=== PATIENT | male | born 1985 | race American Indian/Alaskan Native ===

== ENCOUNTER 2016-10-25 14:32 | Emergency (ER) | payer MEDICAID ==
[2016-10-25 14:36] VITALS: O2SAT 98
--- NOTE | 2016-10-25 15:09 | ED PDOC ---
Lower Extremity Pain/Injury Time Seen by Provider: 10/25/16 14:55 Chief Complaint (Nursing): Lower Extremity Problem/Injury Chief Complaint (Provider): Right foot pain History Per: Patient History/Exam Limitations: no limitations Onset/Duration Of Symptoms: Mins Current Symptoms Are (Timing): Still Present Severity: Moderate Additional History Per: Patient Additional Complaint(s): The pt is a 31yo male with PMHx of Asthma, presents to the ED for evaluation of right foot pain since 2 hours ago. Pt reports he was walking to work and struck his foot against an object - states he walked to worked and called an ambulance to get him to this facility for evaluation. Pt reports pain is worse on the plantar surface of his right foot and also states pain to his ankle. Pt denies taking any medications for pain. At present, he offers no additional medical complaints. PMD: None provided - Ankle/Foot Description Of Injury: Struck Against Object Currently Unable To: Bear Weight Past Medical History Reviewed: Historical Data, Nursing Documentation, Vital Signs Vital Signs: Last Vital Signs Temp Pulse Resp BP Pulse Ox 98 10/25/16 14:34 - Medical History PMH: Asthma, Depression Denies: Diabetes, Hepatitis, HIV, HTN, Seizures, Sexually Transmitted Disease - Surgical History Other surgeries: knee surgery - Family History Family History: States: Unknown Family Hx - Home Medications Home Medications: Ambulatory Orders Medication Instructions Recorded Risperdal 10/19/13 Naproxen 500 mg PO BID #10 tab 10/25/16 - Allergies Allergies/Adverse Reactions: Allergies Allergy/AdvReac Type Severity Reaction Status Date / Time No Known Allergies Allergy Unverified 10/19/13 05:44 Review of Systems ROS Statement: Except As Marked, All Systems Reviewed And Found Negative Musculoskeletal: Positive for: Foot Pain (right) Physical Exam - Reviewed Nursing Documentation Reviewed: Yes Vital Signs Reviewed: Yes - Physical Exam Appears: Positive for: Well, Non-toxic, No Acute Distress Head Exam: Positive for: ATRAUMATIC, NORMAL INSPECTION, NORMOCEPHALIC Skin: Positive for: Normal Color, Warm, DRY Eye Exam: Positive for: Normal appearance Respiratory: Negative for: Respiratory Distress Extremity: Positive for: Normal ROM, Tenderness (tenderness to medial aspect of right foot and to the dorsal aspect of right foot.). Negative for: Deformity Neurologic/Psych: Positive for: Alert, Oriented - ECG O2 Sat by Pulse Oximetry: 98 (RA) Pulse Ox Interpretation: Normal Medical Decision Making Medical Decision Making: Time: 1505 Impression: Foot fracture vs. sprain Plan: -- XR Right foot -- Motrin 600 mg PO --Reassess Xray foot no acute findings Scribe Attestation: Documented by Dionne Dodd acting as a scribe for Reema Encinas MD Provider Scribe Attestation: All medical record entries made by the Scribe were at my direction and personally dictated by me. I have reviewed the chart and agree that the record accurately reflects my personal performance of the history, physical exam, medical decision making, and the department course for this patient. I have also personally directed, reviewed, and agree with the discharge instructions and disposition. Disposition - Clinical Impression Clinical Impression: Foot sprain - Patient ED Disposition Is Patient to be Admitted: No Doctor Will See Patient In The: Office Counseled Patient/Family Regarding: Studies Performed, Diagnosis, Need For Followup - Disposition Referrals: Podiatry Clinic [Outside] Disposition: Routine/Home Disposition Time: 16:57 Condition: GOOD Additional Instructions: Follow up with podiatry within 1 week. Prescriptions: Naproxen 500 mg PO BID #10 tab Instructions: Foot Sprain (ED)
--- NOTE | 2016-10-26 16:33 | RAD ---
PROCEDURE: Right Foot Radiographs. HISTORY: right foot pain COMPARISON: None. FINDINGS: BONES: Bone alignment and mineralization are normal. There is no acute fracture or bone destruction. JOINTS: The joint spaces are preserved. SOFT TISSUES: Normal. OTHER FINDINGS: None. IMPRESSION: Normal examination.
== END 2016-10-25 18:44 | disposition home or self-care (01) ==
LOC: H.ER 14:32
DX: S93.601A Unspecified sprain of right foot, initial encounter (principal); W22.8XXA Striking against or struck by other objects, initial encounter; Y99.0 Civilian activity done for income or pay

== ENCOUNTER 2017-02-21 03:16 | Emergency (ER) | payer MEDICAID, OTHER ==
[2017-02-21 03:45] VITALS: BP 129/67; PULSE 65; RESP 18; TEMP 98; O2SAT 99
--- NOTE | 2017-02-21 03:50 | ED PDOC ---
HPI: Dental Pain/Injury Time Seen by Provider: 02/21/17 03:50 Chief Complaint (Nursing): Dental Pain Chief Complaint (Provider): tooth pain History Per: Patient Additional Complaint(s): 31 year old male presents with overall dental pain for the past 2-3 days. He has not taken any meds for pain relief. Patient rates current pain as 6/10. He is tolerating liquids and solids. No associated trauma or injury. Past Medical History Reviewed: Historical Data, Nursing Documentation, Vital Signs Vital Signs: Last Vital Signs Temp 98 F 02/21/17 03:44 Pulse 65 02/21/17 03:44 Resp 18 02/21/17 03:44 BP 129/67 02/21/17 03:44 Pulse Ox 99 02/21/17 03:44 - Medical History PMH: Asthma, Depression - Surgical History Surgical History: No Surg Hx - Family History Family History: States: No Known Family Hx - Living Arrangements Living Arrangements: Other (non domiciled) - Social History Current smoker - smoking cessation education provided: Yes Alcohol: None Drugs: Denies - Home Medications Home Medications: Ambulatory Orders Medication Instructions Recorded Risperdal 10/19/13 Naproxen 500 mg PO BID #10 tab 10/25/16 Ibuprofen [Motrin] 600 mg PO Q6 PRN #15 tab 02/21/17 - Allergies Allergies/Adverse Reactions: Allergies Allergy/AdvReac Type Severity Reaction Status Date / Time No Known Allergies Allergy Unverified 10/19/13 05:44 Review of Systems ROS Statement: Except As Marked, All Systems Reviewed And Found Negative ENT: Positive for: Other (dental pain) Physical Exam - Reviewed Nursing Documentation Reviewed: Yes Vital Signs Reviewed: Yes - Physical Exam Appears: Positive for: Well, Non-toxic, No Acute Distress Skin: Negative for: Rash Eye Exam: Positive for: Normal appearance ENT: Positive for: Other (Multiple missing molar teeth to right and left lower mandibles, full rom of lower mandible, no dental abscess, no facial swelling) Neck: Positive for: Normal Cardiovascular/Chest: Positive for: Regular Rate, Rhythm Respiratory: Positive for: Normal Breath Sounds Neurologic/Psych: Positive for: Alert, Oriented - ECG O2 Sat by Pulse Oximetry: 99 Pulse Ox Interpretation: Normal Medical Decision Making Medical Decision Making: Impression: dental pain, dental caries Plan: PO motrin dose in ED Rx motrin given along with list of dental clinics for follow up. Disposition - Clinical Impression Clinical Impression: Pain, dental, Dental caries - Patient ED Disposition Is Patient to be Admitted: No Counseled Patient/Family Regarding: Diagnosis, Need For Followup, Rx Given - Disposition Referrals: [facility] [Outside] Disposition: Routine/Home Disposition Time: 04:14 Condition: STABLE Additional Instructions: TAKE RX MEDS DIRECTED NEEDED FOR PAIN. FOLLOW UP SOON POSSIBLE WITH DENTIST. Prescriptions: Ibuprofen [Motrin] 600 mg PO Q6 PRN #15 tab PRN Reason: Pain, Moderate (4-7) Instructions: Dental Caries (ED), Toothache (ED)
== END 2017-02-21 04:05 | disposition home or self-care (01) ==
LOC: H.ER 03:16
DX: K02.9 Dental caries, unspecified (principal); F32.9 Major depressive disorder, single episode, unspecified; J45.909 Unspecified asthma, uncomplicated

== ENCOUNTER 2018-09-16 07:26 | Emergency (ER) | payer OTHER ==
[2018-09-16 07:50] VITALS: BP 125/66; PULSE 68; RESP 18; TEMP 97; O2SAT 100
[2018-09-16] MEDS ORDERED: Tdap Vaccine 0.5 ml Vial (10-64 yrs) IM ONE (08:04)
--- NOTE | 2018-09-16 08:18 | ED PDOC ---
Lower Extremity Pain/Injury Time Seen by Provider: 09/16/18 07:48 Chief Complaint (Nursing): Lower Extremity Problem/Injury Chief Complaint (Provider): R. Lower foot pain and swelling History Per: Patient Additional Complaint(s): Pt is a 33 y/o male presenting to ED with R. Foot swelling and pain. States that 5 days ago he struck his foot against a rock while at work. Reports he had mild bleeding at the time and the pain subsided quickly. Then 2-3 days ago he started noticing swelling and pain at the site of trauma. He denies any fluid draining from foot, fever/chills, other joint pain (ankle/knee), leg swelling, calf tenderness, or hx of skin infections. PMD: None PMHX: None PSHx: R. Bunion repair and Knee surgery in high school Medications: none NKDA FMHx: Diabetes in Mother and 3 maternal aunts Does not know if he is up to date with TDAP Social: Works in Construction. Lives in a house with family. Former cigarette smoker, smokes marijuana few times a week. Denies heavy alcohol use or illicit drug use. Past Medical History Reviewed: Historical Data, Nursing Documentation, Vital Signs Vital Signs: Last Vital Signs Temp 97 F L 09/16/18 07:47 Pulse 68 09/16/18 07:47 Resp 18 09/16/18 07:47 BP 125/66 09/16/18 07:47 Pulse Ox 100 09/16/18 07:47 - Medical History PMH: Asthma, Depression Denies: Diabetes, Hepatitis, HIV, HTN, Seizures, Sexually Transmitted Disease - Family History Family History: States: Unknown Family Hx - Living Arrangements Living Arrangements: With Family - Social History Current smoker - smoking cessation education provided: Yes (Canniboid) - Home Medications Home Medications: Ambulatory Orders Medication Instructions Recorded Risperdal 10/19/13 Naproxen 500 mg PO BID #10 tab 10/25/16 Ibuprofen [Motrin] 600 mg PO Q6 PRN #15 tab 02/21/17 Clindamycin [Cleocin] 300 mg PO QID 7 Days cap 09/16/18 Ibuprofen [Motrin] 600 mg PO TID 7 Days tab 09/16/18 - Allergies Allergies/Adverse Reactions: Allergies Allergy/AdvReac Type Severity Reaction Status Date / Time No Known Allergies Allergy Unverified 10/19/13 05:44 Review of Systems Constitutional: Negative for: Fever, Chills Cardiovascular: Negative for: Chest Pain Respiratory: Negative for: Cough Physical Exam - Physical Exam Appears: Positive for: No Acute Distress (Adult male sitting comfortable, poor hygiene noted throughout exam) Head Exam: Positive for: NORMAL INSPECTION Skin: Positive for: Dry Neck: Positive for: Normal Cardiovascular/Chest: Positive for: Regular Rate, Rhythm Respiratory: Positive for: Normal Breath Sounds. Negative for: Accessory Muscle Use, Crackles Pulses-Dorsalis Pedis (L): 2+ Pulses-Dorsalis Pedis (R): 2+ Extremity: Positive for: Capillary Refill, Other (RIGHT FOOT: Lateral Dorsal region- 3-4cm of swelling and hyperpigemented with central scabbing, indurated, tendern to palpation. Remainder of foot and ankle- Full ROM, no palpable tenderness, no calf swelling or tenderness with forced dorsiflexion). Negative for: Pedal Edema, Calf Tenderness Neurologic/Psych: Positive for: Alert (slow responses), Oriented - ECG O2 Sat by Pulse Oximetry: 100 Medical Decision Making Medical Decision Makin33 y/o male with R. Foot swelling and tenderness after recent trauma. Exam findings suggestive of possible cellulites/abscess. Will get Xray to rule out any Osteo. Foot Xray Motrin Clindamycin Foot Xray normal; discharge on Clindamycin and Motrin. Advised to f/u with PMD in 1 week Disposition - Clinical Impression Clinical Impression: Foot injury, Cellulitis - Disposition Referrals: Zoila Bob MD [Primary Care Provider] - 09/19/18 Disposition: Routine/Home Disposition Time: 11:00 Condition: STABLE Additional Instructions: Return if not better in 3 days. Prescriptions: Clindamycin [Cleocin] 300 mg PO QID 7 Days cap Ibuprofen [Motrin] 600 mg PO TID 7 Days tab Instructions: Cellulitis (Skin Infection), Adult (DC), Foot Sprain (DC)
--- NOTE | 2018-09-16 13:01 | RAD ---
Date of service: 09/16/2018 PROCEDURE: Right Foot Radiographs. HISTORY: Right foot pain and swelling. No history of trauma provided COMPARISON: None. FINDINGS: BONES: Normal. No fracture. JOINTS: Normal. SOFT TISSUES: Normal. OTHER FINDINGS: None. IMPRESSION: Normal right foot radiographs. Concordant results with the preliminary interpretation rendered by the emergency department physician procedure.
== END 2018-09-16 09:10 | disposition home or self-care (01) ==
LOC: SUPCPDRO 07:26 → H.ER 07:26
DX: L03.115 Cellulitis of right lower limb (principal); F32.9 Major depressive disorder, single episode, unspecified

== ENCOUNTER 2018-09-21 03:46 | Emergency (ER) | payer OTHER ==
[2018-09-21 04:02] VITALS: BP 139/90; PULSE 79; RESP 17; TEMP 98; O2SAT 99
[2018-09-21] MEDS ORDERED: Naproxen 500 MG TAB PO STA (04:15)
--- NOTE | 2018-09-21 04:42 | ED PDOC ---
Lower Extremity Pain/Injury Time Seen by Provider: 09/21/18 04:04 Chief Complaint (Nursing): Lower Extremity Problem/Injury Chief Complaint (Provider): Lower Extremity Problem/Injury History Per: Patient History/Exam Limitations: no limitations Onset/Duration Of Symptoms: Days (x10) Additional Complaint(s): 33 y/o male presents for the 2nd time in 1 week due to pain to his right foot. Patient reports that approximately 10 days ago he hit his right foot on a rock at work. Patient states pain has continued and he has been taking pain medications since he was last discharged but says that they wear off quickly. Patient denies any new injury. States he did not follow up with his PMD. Patient completed course of antibiotics for cellulitis. - Ankle/Foot Description Of Injury: Struck Against Object Past Medical History Reviewed: Historical Data, Nursing Documentation, Vital Signs Vital Signs: Last Vital Signs Temp 98.0 F 09/21/18 03:53 Pulse 79 09/21/18 03:53 Resp 17 09/21/18 03:53 BP 139/90 09/21/18 03:53 Pulse Ox 99 09/21/18 03:53 - Medical History PMH: Asthma, Depression Denies: Diabetes, Hepatitis, HIV, HTN, Seizures, Sexually Transmitted Disease - Family History Family History: States: Unknown Family Hx - Home Medications Home Medications: Ambulatory Orders Medication Instructions Recorded Risperdal 10/19/13 Naproxen 500 mg PO BID #10 tab 10/25/16 Ibuprofen [Motrin] 600 mg PO Q6 PRN #15 tab 02/21/17 Clindamycin [Cleocin] 300 mg PO QID 7 Days cap 09/16/18 Ibuprofen [Motrin] 600 mg PO TID 7 Days tab 09/16/18 Ibuprofen [Motrin] 600 mg PO Q6 #28 tab 09/21/18 - Allergies Allergies/Adverse Reactions: Allergies Allergy/AdvReac Type Severity Reaction Status Date / Time No Known Allergies Allergy Unverified 10/19/13 05:44 Review of Systems ROS Statement: Except As Marked, All Systems Reviewed And Found Negative Musculoskeletal: Positive for: Foot Pain Physical Exam - Reviewed Nursing Documentation Reviewed: Yes Vital Signs Reviewed: Yes - Physical Exam Appears: Positive for: Well, Non-toxic, No Acute Distress Head Exam: Positive for: ATRAUMATIC, NORMAL INSPECTION, NORMOCEPHALIC Skin: Positive for: Normal Color, Warm, DRY Eye Exam: Positive for: EOMI, Normal appearance, PERRL ENT: Positive for: Normal ENT Inspection Neck: Positive for: Normal, Painless ROM Cardiovascular/Chest: Positive for: Regular Rate, Rhythm. Negative for: Murmur Respiratory: Positive for: Normal Breath Sounds. Negative for: Respiratory Distress Pulses-Dorsalis Pedis (L): 2+ Pulses-Dorsalis Pedis (R): 2+ Gastrointestinal/Abdominal: Positive for: Normal Exam, Soft. Negative for: Tenderness Back: Positive for: Normal Inspection Extremity: Positive for: Normal ROM, Other (No signs of trauma; full strength full sensation). Negative for: Pedal Edema, Deformity, Swelling Neurologic/Psych: Positive for: Alert, Oriented. Negative for: Motor/Sensory Deficits - ECG O2 Sat by Pulse Oximetry: 99 (RA) Pulse Ox Interpretation: Normal Medical Decision Making Medical Decision Making: Time: 04:15 MDM: Continued pain after mechanical injury. No signs of infection, palpable mass or swelling. Plan: Naproxen for pain 04:39 Patient given Naproxen for pain and given prescription for Ibuprofen. Patient is to follow up with podiatry. He will be discharged home. Scribe Attestation: Documented by Rony Azevedo acting as a scribe for Jeniffer Lopez MD. Provider Scribe Attestation: All medical record entries made by the Scribe were at my direction and personally dictated by me. I have reviewed the chart and agree that the record accurately reflects my personal performance of the history, physical exam, medical decision making, and the department course for this patient. I have also personally directed, reviewed, and agree with the discharge instructions and disposition. Disposition - Clinical Impression Clinical Impression: Foot injury - Disposition Referrals: Podiatry Clinic [Outside] Disposition Time: 04:39 Additional Instructions: Take Motrin as needed for pain. Follow up in podiatry clinic or with primary medical doctor. Prescriptions: Ibuprofen [Motrin] 600 mg PO Q6 #28 tab Forms: [employer] (French) Print Language: BULGARIAN
[2018-09-21] MEDS ORDERED: Naproxen 500 MG TAB PO ONE (04:44)
== END 2018-09-21 06:11 | disposition home or self-care (01) ==
LOC: H.ER 03:46
DX: S99.921A Unspecified injury of right foot, initial encounter (principal); W22.8XXA Striking against or struck by other objects, initial encounter; Y92.89 Other specified places as the place of occurrence of the external cause; Y99.0 Civilian activity done for income or pay